=== PATIENT | female | born 1935 | race Caucasian/White ===

== ENCOUNTER 2023-05-11 10:48 | Emergency (ER) | payer OTHER, MEDICARE, SELFPAY ==
[2023-05-11] VITALS (7 sets, daily range): BP systolic 230–238; BP diastolic 79–103; PULSE 49–66; RESP 14–20; O2SAT 96–98
--- NOTE | 2023-05-11 10:30 | DI.CT_ITS ---
Exam(s) CT HEAD WO EXAM: CT HEAD WO CLINICAL HISTORY: ?cva. TECHNIQUE: Imaging Protocol: Axial computed tomography images with coronal and sagittal reformatted images were created and reviewed COMPARISON: No exams were available for comparison FINDINGS: Ventricles and Extra axial spaces: Normal in size and morphology for the patient's age. Hemorrhage: None. Cerebral parenchyma: No evidence of acute infarct or mass. Severe atrophy. White matter changes of small vessel disease. Midline shift: None. Brainstem/Cerebellum: Normal. Calvarium: Normal. Visualized Paranasal sinuses/Mastoids: Clear. Soft Tissues: Unremarkable. IMPRESSION: No acute intracranial process. Severe atrophy. RADIATION DOSE DELIVERED: Total DLP DATA REPOSITORY: All CT scans at this facility are submitted to the National Radiology Data Registry (NRDR) Dose Index Registry (DIR) with the [employer] (ACR). RADIATION OPTIMIZATION: All CT scans at this facility use at least one of these dose optimization te chniques: automated exposure control; mA and/or kV adjustment per patient size (includes targeted exa ms where dose is matched to clinical indication); or iterative reconstruction.
--- NOTE | 2023-05-11 10:45 | DI.CT_ITS ---
Exam(s) CT BRAIN NECK CTA EXAM: CT BRAIN NECK CTA CLINICAL HISTORY: left sided hemiparesis. TECHNIQUE: Imaging Protocol: Axial CT angiography was performed with multi-slice acquisition and mu lti-planar and 3D reconstructions. CONTRAST MATERIAL: Intravenous: Omnipaque 350 Contrast volume:85 ml COMPARISON: CT CT HEAD WO from 05/11/2023 FINDINGS: CT Head W contrast: Ventricles and Extra axial spaces: Normal in size and morphology for the patient's age. Hemorrhage: None. Cerebral parenchyma: No evidence of acute infarct or mass. Atrophy. Midline shift: None. Brainstem/Cerebellum: No acute findings.. Calvarium: Normal. Visualized Paranasal sinuses/Mastoids: Clear. Soft Tissues: Unremarkable. Enhancement: Normal. CTA Brain W: Internal Carotid Arteries: Petrous: Normal. Cavernous: Normal. Cerebral: Normal. Middle Cerebral Arteries: Right: Significant narrowing of the right middle cerebral artery beginning at the distal M1 segment through M3 segment. Secondary to partially occlusive thrombus. Some collateral flow is seen to dist al branches. Left: No aneurysm, occlusion or significant stenosis. Anterior Cerebral Arteries: Right: No aneurysm, occlusion or significant stenosis. Left: No aneurysm, occlusion or significant stenosis. Posterior cerebral Arteries: Right: No aneurysm, occlusion or significant stenosis. Left: No aneurysm, occlusion or significant stenosis. Vertebral Arteries: Right: Diminutive. No aneurysm. Significant narrowing distally with occlusion or near occlusion. Left: Dominant. No aneurysm, occlusion or significant stenosis. Basilar Artery: No aneurysm, occlusion or significant stenosis. CTA Neck W: Common Carotid: Right: No dissection, occlusion or significant stenosis. Left: No dissection, occlusion or significant stenosis. External Carotid: Right: No dissection, occlusion or significant stenosis. Left: No dissection, occlusion or significant stenosis. Internal Carotid: Right: Minimal plaque at bulb. No dissection, occlusion or significant stenosis. Left: No dissection, occlusion or significant stenosis. Vertebral Artery: Right: Diminutive. Narrowing distal to the C3-4 level. Occlusion at C2 level. Some flow is seen at the level of the skull base which could be retrograde. Left: No dissection, occlusion or significant stenosis. Lung Apices: Normal. Bones: No acute abnormality. Advanced degenerative changes. Soft Tissues: Normal. IMPRESSION: 1. CT a brain: Thrombus and narrowing at distal M1 segment and distally. 2. No acute infarct visible at this time. 3. Diminutive right vertebral artery. Significant stenosis and occlusion distally at the C2 level. Faint flow seen distal to this level. RADIATION DOSE DELIVERED: Total DLP DATA REPOSITORY: All CT scans at this facility are submitted to the National Radiology Data Registry (NRDR) Dose Index Registry (DIR) with the [employer] (ACR). RADIATION OPTIMIZATION: All CT scans at this facility use at least one of these dose optimization te chniques: automated exposure control; mA and/or kV adjustment per patient size (includes targeted exa ms where dose is matched to clinical indication); or iterative reconstruction.
--- NOTE | 2023-05-11 10:45 | RT.EKG_ITS ---
APPROVED REPORT Exam: Resting ECG Reason for Exam: Possible Stroke Patient Location: E HR:57 bpm ECG Measurements Heart Rate 57 AXIS OR 173 P 57 QRSd 102 QRS -23 QT 516 T 90 QTc 493 Conclusion Sinus bradycardia...rate< 60 Atrial premature complex...SV complex w/ short R-R interval LVH with secondary repolarization abnormality...multi-LVH criteria, abnrm ST-T
--- NOTE | 2023-05-11 10:49 | W.ED.GENAD ---
Discharge Plan Disposition Specific Acute Inpt Facility: [facility] Condition: Serious Condition: Serious Discharge Details Chief Complaint: CVA/TIA Primary Care Provider: Aly Lopez ED Provider: Duy Wiggins Home Meds and New Rx's Prescriptions: No Action escitalopram oxalate 10 mg tablet 10 mg PO DAILY amlodipine 5 mg tablet 5 mg PO DAILY omeprazole 20 mg tablet,delayed release (DR/EC) 20 mg PO DAILY benazepril 40 mg tablet 40 mg PO DAILY alendronate 70 mg tablet 70 mg PO QWEEK Caltrate 600 plus D 600 mg-20 mcg (800 unit) tablet,chewable 1 tab PO DAILY Medical Decision Making 87 yo female with hx of htn and chronic alcohol abuse per daughter comes in with ems with ams. She is staying with her daughter in the area over the winter. The daughter reports the patient had less energy the last few days and went to bed last night around 830pm which was when she was last seen alert and oriented. Her daughter found her in her bed this morning unable to talk and not moving her left arm and leg so called ems. She arrives with ems mute and her head and eyes turned to the right, she is able to shake her head yes and no slightly but doesn't answer all questions appropriately. She does say no when asked if she has pain anywhere. She has an NIH of 18 on arrival (2 for month and age questions, 1 for blink eyes and squeeze hands, 2 for horizontal extraocular movements, 2 for facial palsy as she has right lower face droop, 2 for left arm motor drift, 2 for left leg motor drift, 1 for right arm motor drift as it drifts and doesn't hit the bed, 1 for right arm motor drift as it drifts but doesn't hit the bed, 3 for language/aphasia, 2 for dysarthria as she is mute). Suspect cva given presentation, will proceed with CT, CTA, and labs. She is dnr/dni per the daughter. labs show mild increase in troponin likely secondary to her cva, she does have an M1 thrombus, pt stable neuro exam, will discuss with neuro at [facility] [place] pt stable and is able to answer some questions verbally now, discussed with neuro Dr. brown who reviewed case and images and recommend transfer for possible thrombectomy, pt and daughter agree with plan. Pt is noted to be hypertensive to 230, no helicopter is available currently and no critical care medics available which would prolong her time to be transferred and possibly put her outside the window for intervention, was given labetalol with some effect to 220 systolic, discussed with [facility] [place] and decision made to transfer with her being hypertensive for the needed emergent procedure. Differential Diagnosis Differential Diagnosis: cva, hemorrhage Imaging Data Radiologic Study: Attestation: I personally reviewed and interpreted this imaging study as follows: Imaging: CT Scan Radiologist's impression: IMPRESSION: CTA confirms the presence of thrombus distal right M1 segment with significant flow attenuation in distal right M2, M3 branches. To better evaluate the full extent of recent, acute or subacute ischemia MR correlation recommended if the patient is able. Left vertebral artery is dominant. The distal cervical, proximal intradural right vertebral artery are diseased, there is some flow in the right vertebral artery at the vertebrobasilar junction and in the right PICA presumably retrograde. 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 IMPRESSION: No hemodynamically significant carotid stenosis Left vertebral artery is dominant. Flow is maintained throughout the left cervical vertebral artery. Right vertebral artery is small, hypoplastic, diseased and appears to occlude distally, proximal to the skull base as described.. Radiologic Study #2: Attestation: I personally reviewed and interpreted this imaging study as follows: Imaging: CT Scan Radiologist's impression: IMPRESSION: 1. Hyperdense right MCA (M2 branch) consistent with the presence of occlusive thrombus. This can be further assessed with CT angiography. 2. No intracranial hemorrhage or acute territorial infarct. 3. Moderately advanced chronic microangiopathy. Lab Data Lab results reviewed: Yes I reviewed the patient's lab results. ECG Data Attestation: I personally reviewed and interpreted this ECG (s) as follows: Prior ECG tracings: not available for review Interpretation: sinus bradycardia, rate of 57, no stemi HPI General Mode of arrival: EMS. Date/Time Provider Initiated Documentation: 05/11/23 10:49. Limitations to Documentation: no limitations. Information obtained by: patient. History of Present Illness 87 year old F presents to the emergency department with the chief complaint of left sided weakness, described as moderate, Patient started experiencing this unknown (last known normal 830pm last night) and it has been constant. No relieving factors improve symptom(s), No exacerbating factors reported . Patient did receive the following treatments prior to arrival, none Related Data Home Medications Medication Instructions Recorded Confirmed alendronate 70 mg tablet 70 mg PO QWEEK 05/11/23 05/11/23 amlodipine 5 mg tablet 5 mg PO DAILY 05/11/23 05/11/23 benazepril 40 mg tablet 40 mg PO DAILY 05/11/23 05/11/23 calcium carbonate 600 mg-vitamin 1 tab PO DAILY 05/11/23 05/11/23 D3 20 mcg (800 unit) chewable tablet (Caltrate 600 plus D) escitalopram oxalate 10 mg tablet 10 mg PO DAILY 05/11/23 05/11/23 omeprazole 20 mg tablet,delayed 20 mg PO DAILY 05/11/23 05/11/23 release Allergies Allergy/AdvReac Type Severity Reaction Status Date / Time NKDA Allergy Mild Uncoded 05/11/23 11:23 Review of Systems Unobtainable due to mental status PFSH Medical History (Updated 05/11/23 @ 11:22 by Mee Carter) GERD (gastroesophageal reflux disease) Osteopenia Hypertension Social History Smoking/Tobacco Use Status: Never Smoking risk assessment performed?: Yes Alcohol Intake: current Alcohol Intake frequency: 3 or more drinks per day Alcohol type: beer Drug use: Never Substance use type: does not use Housing: house Do you feel safe at home: Yes Do you feel safe in your relationship?: Yes Exam Const Orientation: alert [facility] Head: normal to inspection Ears: external ears normal General nose exam: external nose normal Mouth: moist mucous membranes Eyes General: appearance normal, both eyes and all related structures Neck Neck: normal visual inspection Resp Effort & Inspection: normal respiratory effort and able to speak in complete sentences Cardio Rate: regular rate Skin General skin exam: no rashes or lesions noted Neuro General: patient awake Cranial Nerves: PERRL Extrem General: normal to inspection
--- NOTE | 2023-05-11 11:00 | DI.RAD_ITS ---
Exam(s) XR CHEST 1V IN DI DEPT EXAM: XR CHEST 1V IN DI DEPT CLINICAL HISTORY: ?pneumonia TECHNIQUE: 2D digital imaging was performed. COMPARISON: No exams were available for comparison FINDINGS: Exam limited by rotation and semi upright positioning. LUNGS: Left lung base suboptimally visualized due to overlying soft tissues. Infiltrate not excluded . No pleural abnormality seen. HEART: Markedly enlarged. AORTA: Ectatic BONES: Unremarkable for age. Soft tissues: Unremarkable. IMPRESSION: Markedly enlarged heart. Left basilar infiltrate or atelectasis. DATA REPOSITORY: RADIATION DOSE DELIVERED:
[2023-05-11 11:24] LABS: Abs Immature Grans 0.03 10^3/uL (0.0-0.06); Absolute Basophil Count 0.04 10^3/uL (0.0-0.2); Absolute Eosinophil Count 0.22 10^3/uL (0.0-0.7); Absolute Lymphocyte Count 3.27 10^3/uL (1.2-3.4); Absolute Monocyte Count 0.46 10^3/uL (0.1-0.8); Absolute Neutrophil Count 3.62 10^3/uL (1.2-6.7); Basophils % 0.5; Eosinophils % 2.9; HCT 39.4 % (36.0-46.0); HGB 13.5 g/dL (11.2-15.7); Immature Grans % 0.4; Lymphocytes % 42.8; MCH 31.5 pg (27.0-33.0); MCHC 34.3 % (32.0-36.0); MCV 92 fL (80-95); Neutrophils % 47.4; Platelet Count 212 10^3/uL (130-400); RBC 4.29 10^6/uL (3.93-5.22); RDW 12.5 % (11.7-14.6); RDW-SD 42.4 fL; WBC 7.64 10^3/uL (4.4-10.8)
[2023-05-11 11:40] LABS: ALT 15 U/L (14-59); AST 20 U/L (15-37); Albumin 3.6 g/dL (3.4-5.0); Alkaline Phosphatase 85 U/L (46-116); Anion Gap 9.8 mmol/L (3-11); BUN 21 mg/dL (7-18); Bilirubin, Total 0.7 mg/dL (0.2-1.0); CO2 27.2 mmol/L (21.0-32.0); Chloride 103 mmol/L (98-107); Estimated GFR 54.87 (mL/min/1.73m2); Glucose 140 mg/dL (74-106); Magnesium 1.7 mg/dL (1.8-2.4); Potassium 3.4 mmol/L (3.5-5.1); Sodium 140 mmol/L (136-145); Total Protein 7.1 g/dL (6.4-8.2)
[2023-05-11 11:52] LABS: Troponin I 159 ng/L (<or=60)
[2023-05-11] MEDS: Normal Saline - Diluent 50 ML VIAL IJ (11:55)
[2023-05-11] MEDS: Omnipaque 350 MG/ML 100 ML BTL IJ (11:56)
--- NOTE | 2023-05-11 11:56 | DI.VRAD_ITS ---
PROCEDURE INFORMATION: Exam: CT Head Without Contrast Exam date and time: 05/11/2023 10:50 AM Age: 87 years old Clinical indication: Stroke-like symptoms; Right facial droop; Lt upper extremity and lt lower extremity weakness TECHNIQUE: Imaging protocol: Computed tomography of the head without contrast. Radiation optimization: All CT scans at this facility use at least one of these dose optimization techniques: automated exposure control; mA and/or kV adjustment per patient size (includes targeted exams where dose is matched to clinical indication); or iterative reconstruction. Other technique: STROKE PROTOCOL was implemented. COMPARISON: No relevant prior studies available. FINDINGS: Brain: Diffuse sulcal enlargement is compatible with age-related cerebral volume loss. There is no intracranial hemorrhage, mass effect, midline shift, or extra-axial collection. Abnormal hyperdensity is seen within a right M2 branch in the sylvian fissure (see series 8, images 62-65) consistent with the presence of thrombus. Wise-white matter differentiation is preserved. There is no evidence of acute territorial infarct. There is patchy hypoattenuation in the periventricular, deep, and (to a lesser extent) subcortical white matter, most compatible with moderately advanced chronic microangiopathy. Cerebral ventricles: . Diffuse mild ventriculomegaly consistent with age-related cerebral volume loss. No overt hydrocephalus. Paranasal sinuses: Visualized paranasal sinuses are well aerated. Mastoid air cells: The mastoid air cells are clear bilaterally. Orbital cavities: Bilateral ocular lens replacements are noted. Bones/joints: Osteopenia. Persistent metopic suture. Soft tissues: Extracranial soft tissues are unremarkable. Vasculature: Atherosclerotic vascular calcifications are noted at the skull base. IMPRESSION: 1. Hyperdense right MCA (M2 branch) consistent with the presence of occlusive thrombus. This can be further assessed with CT angiography. 2. No intracranial hemorrhage or acute territorial infarct. 3. Moderately advanced chronic microangiopathy. ASSESSMENT: ASPECTS ([place] Stroke Program Early CT Score) is 10. THIS REPORT CONTAINS FINDINGS THAT MAY BE CRITICAL TO PATIENT CARE. The findings were verbally communicated via telephone conference at 11:52 AM EST on 05/11/2023 with Duy Wiggins. The findings were acknowledged and understood. Dictated and Authenticated by: Iveth Delong MD. Ordering:AUGUSTINA Gordillo MD
[2023-05-11 11:57] LABS: Bilirubin Negative (Negative); Blood Negative (Negative); Clarity Clear (Clear); Glucose Negative (Negative); Ketones Trace mg/dL (Negative); Leukocyte Esterase Small (Negative); Nitrite Negative (Negative); Urobilinogen 0.2 mg/dL (Up to 0.2)
[2023-05-11 12:01] LABS: Prothrombin Time 10.4 sec (9.1-11.1)
[2023-05-11 12:08] LABS: Bacteria Few HPF (Negative); C & S Indicated? No/Sq. Contamination; Casts Negative LPF (Negative); Crystals Negative HPF (Negative); Epithelial Cells Moderate HPF (Negative); Mucus Negative (Negative)
--- NOTE | 2023-05-11 12:53 | DI.VRAD_ITS ---
Addendum created by Minoo Dawn MD on 05/11/2023 12:59:44 PM EST: THIS REPORT CONTAINS FINDINGS THAT MAY BE CRITICAL TO PATIENT CARE. The findings were verbally communicated via telephone conference with Budget Consultant Mee Taveras at 12:59 PM EST on 05/11/2023. The findings were acknowledged and understood. Initial report created on 05/11/2023 12:53:06 PM EST: PROCEDURE INFORMATION: Exam: CTA Head With Contrast, Arteriography Exam date and time: 05/11/2023 11:56 AM Age: 87 years old Clinical indication: Stroke-like symptoms; Lt upper extremity and lt lower extremity weakness TECHNIQUE: Imaging protocol: Computed tomographic angiography of the head with contrast. Exam focused on the arteries. 3D rendering (Not supervised by radiologist): MIP and/or 3D reconstructed images were created by the technologist. Contrast material: OMNI 350; Contrast volume: 85 ml; Contrast route: INTRAVENOUS (IV); COMPARISON: CT HEAD WO 05/11/2023 10:50 AM FINDINGS: Exam degraded by motion ANTERIOR CIRCULATION: Right internal carotid artery: There is plaque involving the intracranial right ICA without high-grade stenosis. Prominent right PCOM is visualized. Ophthalmic artery is identified. No aneurysm visualized. Right middle cerebral artery: The right M1 segment is patent proximally. However flow see significantly attenuates in the distal right M1 segment, right MCA bifurcation and in distal M2, M3 branches of the right MCA presumably related to the presence of thrombus at the distal right M1 segment/right MCA bifurcation. Thrombus is either not completely occlusive or there is some collateral flow to distal right MCA branches. Right anterior cerebral artery: No occlusion or significant stenosis. No aneurysm. Left internal carotid artery: Plaque but no high-grade stenosis identified. Prominent left PCOM visualized. Ophthalmic artery identified. Left middle cerebral artery: No occlusion or significant stenosis. No aneurysm. Left anterior cerebral artery: No occlusion or significant stenosis. No aneurysm. POSTERIOR CIRCULATION: Right vertebral artery: As described below the distal cervical right vertebral artery is occluded or nearly completely occluded. There is some faint flow noted in the intradural right vertebral artery. There is some flow in the distal right vertebral artery at the vertebrobasilar junction, including the right PICA which likely is at least in part retrograde. No aneurysm. Left vertebral artery: No occlusion or significant stenosis. No aneurysm. Left vertebral artery is dominant Basilar artery: The basilar artery is small likely congenital as there are prominent P comms. Superior cerebellar artery origins are identified.. No aneurysm. Right posterior cerebral artery: No occlusion or significant stenosis. No aneurysm. Left posterior cerebral artery: No occlusion or significant stenosis. No aneurysm. Brain: Noncontrast enhanced exam is dictated as a separate report. Postcontrast images confirm the presence of attenuated flow in the right MCA beyond the right M1 segment. No enhancing mass is identified. Cerebral ventricles: No significant ventricular enlargement . Bones/joints: Unremarkable. No acute fracture. Soft tissues: Unremarkable. IMPRESSION: CTA confirms the presence of thrombus distal right M1 segment with significant flow attenuation in distal right M2, M3 branches. To better evaluate the full extent of recent, acute or subacute ischemia MR correlation recommended if the patient is able. Left vertebral artery is dominant. The distal cervical, proximal intradural right vertebral artery are diseased, there is some flow in the right vertebral artery at the vertebrobasilar junction and in the right PICA presumably retrograde. 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 PROCEDURE INFORMATION: Exam: CTA Neck With Contrast Exam date and time: 05/11/2023 11:56 AM Age: 87 years old Clinical indication: Stroke-like symptoms; Lt upper extremity and lt lower extremity weakness TECHNIQUE: Imaging protocol: Computed tomographic angiography of the neck with contrast. Exam focused on the cervical segments of the vasculature. 3D rendering (Not supervised by radiologist): MIP and/or 3D reconstructed images were created by the technologist. Contrast material: OMNI 350; Contrast volume: 85 ml; Contrast route: INTRAVENOUS (IV); COMPARISON: CT HEAD WO 05/11/2023 10:50 AM FINDINGS: CT angiography of the aortic arch demonstrates that the origins of the brachiocephalic left common carotid artery left subclavian artery are patent. Flow is seen distally in both subclavian arteries. Right common carotid artery: No stenosis. No dissection or occlusion. Right internal carotid artery: There is plaque at the right carotid bifurcation without hemodynamically significant right ICA stenosis. No acute dissection. Right external carotid artery: No occlusion or stenosis of the origin. Left common carotid artery: No stenosis. No dissection or occlusion. Left internal carotid artery: No stenosis of the extracranial segment. No dissection or occlusion. Left external carotid artery: No occlusion or stenosis of the origin. Right vertebral artery: The right cervical vertebral artery is small, hypoplastic. Flow is visualized proximally but there is narrowing/stenosis of the distal cervical right vertebral artery at approximately the C3-C4 level. Flow significantly attenuates presumably occludes in the distal cervical right vertebral artery at the C2 level. There is faint minimal reconstitution of flow at the skull base.. Left vertebral artery: No stenosis. No dissection or occlusion. Left vertebral artery is dominant in the neck. Soft tissues: No evidence of a discrete soft tissue mass in the neck. No significant airspace consolidation is identified at the lung apices. Bones/joints: There are findings consistent with cervical spondylosis, degenerative disc disease. There is multilevel disc space narrowing, disc osteophyte complexes, spondylitic changes of the endplates, uncovertebral and facet arthropathy. IMPRESSION: No hemodynamically significant carotid stenosis Left vertebral artery is dominant. Flow is maintained throughout the left cervical vertebral artery. Right vertebral artery is small, hypoplastic, diseased and appears to occlude distally, proximal to the skull base as described.. REFERENCES: NASCET CRITERIA. The degree of stenosis in the cervical segment of the internal carotid artery is based on NASCET criteria. Normal is no stenosis. Mild is less than 50% stenosis. Moderate is 50-69% stenosis. Severe is 70% to 99% stenosis. Total occlusion is no detectable patent lumen. Dictated and Authenticated by: Minoo Dawn MD. Ordering:AUGUSTINA Gordillo MD
--- NOTE | 2023-05-11 13:04 | DI.VRAD_ITS ---
PROCEDURE INFORMATION: Exam: XR Chest Exam date and time: 05/11/2023 12:24 PM Age: 87 years old Clinical indication: Other: ? Pneumonia; Patient HX: Left side hemiparesis TECHNIQUE: Imaging protocol: Radiologic exam of the chest. Views: 1 view. COMPARISON: CT BRAIN NECK CTA 05/11/2023 11:56 AM FINDINGS: Lungs: There is probable basilar atelectasis or airspace disease on the left There is no other lobar consolidation or overt CHF. Pleural spaces: A large pleural effusion, or pneumothorax is not seen Heart/Mediastinum: The heart is enlarged. Bones/joints: The bony structures are osteopenic. There is no acute bony abnormality. Degenerative changes are seen in the spine IMPRESSION: Probable left basilar atelectasis or airspace disease. No other lobar consolidation or overt CHF on AP chest. Dictated and Authenticated by: Minoo Dawn MD. Ordering:AUGUSTINA Gordillo MD
[2023-05-11] MEDS: Labetalol 100 MG/20 ML VIAL 20 MG IVP (13:43)
[2023-05-11 14:10] LABS: Troponin I 101 ng/L (<or=60)
== END 2023-05-11 14:34 | disposition short-term general hospital (02) ==
PROVIDERS: Emergency Provider Emergency Medicine; PCP Internal Medicine
DX: I63.341 Cerebral infarction due to thrombosis of right cerebellar artery (principal); G81.94 Hemiplegia, unspecified affecting left nondominant side; R29.718 NIHSS score 18; R79.89 Other specified abnormal findings of blood chemistry; R00.1 Bradycardia, unspecified; R94.31 Abnormal electrocardiogram [ECG] [EKG]; I10 Essential (primary) hypertension
CPT/HCPCS: 36410; 70496; 70498; 80053; 93005; 96374; 99285; 70450; 71045; 81003; 81015; 83735; 84484; 85025; 85610; 85730; 93010; J3490